=== PATIENT | male | born 1995 | race Caucasian/White ===

== ENCOUNTER 2025-02-01 00:13 | Emergency (ER) | payer OTHER, SELFPAY ==
[2025-02-01] VITALS (18 sets, daily range): BP systolic 100–127; BP diastolic 46–81; PULSE 106–158; RESP 15–22; TEMP 36.9; O2SAT 94–98
--- NOTE | 2025-02-01 00:21 | ECG_ITS ---
Test Date: 2025-02-01 00:37:59 Measurements Intervals Center Rate: 148 P: 53 MS: 123 QRS: 50 QRSD: 89 T: 47 QT: 329 QTc: 517 Interpretive Statements SINUS TACHYCARDIA, OTHERWISE NORMAL ECG No previous ECG available for comparison Electronically Signed On 02-01-2025 08:04:13 CDT by Redd Sibley M.D.
--- NOTE | 2025-02-01 00:27 | PC.NURSE ---
CINTIA LEVIN, AT THE BEDSIDE COMPLETING EKG
[2025-02-01] MEDS: ONDANSETRON INJ 4 MG/2 ML VIAL IV PUSH (00:41)
[2025-02-01] MEDS: SODIUM CHLORIDE 0.9% IV 1,000 ML 999 ML IV CONT (00:41)
--- NOTE | 2025-02-01 00:49 | PC.NURSE ---
COVID SWAB TAKEN DOWN TO LAB. PATIENT REPORTED THAT HE TOOK A THC GUMMY TONIGHT. MORE THAN HE NORMALLY WOULD. GIRLFRIEND CONFIRMED INFORMATION
--- NOTE | 2025-02-01 00:52 | PC.NURSE ---
PATIENT HAS URINAL AT THE BEDSIDE
--- NOTE | 2025-02-01 00:55 | PC.NURSE ---
PATIENT IS RESTING ON STRETCHER. GIRLFRIEND IS AT THE BEDSIDE. PATIENT REPORTS THAT HIS NAUSEA IS GETTING BETTER.
--- NOTE | 2025-02-01 01:04 | PC.NURSE ---
PATIENT URINE TAKEN TO LAB BY CINTIA LEVIN
[2025-02-01 01:15] LABS: Basophils Absolute Auto 0.07 K/mm3 (0.00-0.10); Basophils Percent Auto 0.7 % (0.0-1.0); Eosinophils Percent Auto 0.9 % (1.0-6.0); Hematocrit 45.1 % (40.0-54.0); Hemoglobin 15.6 g/dL (14.0-18.0); Immature Granulocyte Absolute 0.04 K/mm3 (0.00-0.00); Immature Granulocyte Percent A 0.4 % (0.0-0.0); Lymphocytes Percent Auto 27.4 % (18.0-42.0); Mean Corpuscular HGB Conc 34.6 g/dL (32-36); Mean Corpuscular Hemoglobin 29.3 pg (27.0-31.0); Mean Corpuscular Volume 84.6 fL (78.0-102.0); Mean Platelet Volume 9.4 fl (8.7-11.0); Monocytes Percent Auto 9.4 % (2.0-11.0); Neutrophils Absolute Auto 6.49 K/mm3 (1.70-7.20); Neutrophils Percent Auto 61.2 % (50.0-70.0); Platelet Count Result 402 K/mm3 (150-420); Red Blood Count 5.33 M/mm3 (4.70-6.10); Red Cell Distribution Width 12.4 % (11.6-14.4); White Blood Count 10.6 K/mm3 (4.8-10.8)
--- OUTSIDE RECORDS SUMMARY | 2025-02-01 01:15 | XMS_ITS | Referral Summary ---
Author Organization [facility] Address [address] [place] [address] Care Team Providers Care Project Archivist Name Role Phone Unavailable Primary Care Provider Unavailabl e Source Comments [facility] [employer],non-owned Affiliates and Associated Physician Practices is amultiple site organization consisting of ambulatory clinics and hospital sitesin [place], [place], [place] and [place]. This disclosure is being madepursuant to the Care Everywhere program and may not contain all information available regarding this patient. Last updated 18.[facility] Allergies No known active allergies Medications Be aware that medications may not be up to date on this document. Always verify current medications with the patient. No known medications Social History Tobacco Use Types Packs/Day Years Used Date Smoking Tobacco: Never Smokeless Tobacco: Never Alcohol Use Standard Drinks/Week Comments Yes 0 (1 standard drink = 0.6 oz pur e alcohol) once weekly Sex and Gender Information Value Date Recorded Sex Assigned at Not on file Gender Identity Not on file Sexual Orientation Not on file Last Filed Vital Signs Vital Sign Reading Time Taken Comments Blood Pressure 138/95 12/21/2020 4:59 PM PROMOTIONS OFFICER Pulse 105 12/21/2020 4:59 PM PROMOTIONS OFFICER Temperature 36.7 C (98.1 F) 12/21/2020 4:59 PM PROMOTIONS OFFICER Respiratory Rate 16 12/21/2020 4:59 PM PROMOTIONS OFFICER Oxygen Saturation - - Inhaled Oxygen Concentration - - Weight 88.4 kg (194 lb 12.8 oz) 12/21/2020 4:59 PM PROMOTIONS OFFICER Height 167.6 cm (5' 6 ) 12/21/2020 4:5 9 PM PROMOTIONS OFFICER Body Mass Index 31.44 12/21/2020 4:59 PM PROMOTIONS OFFICER Plan of Treatment Not on file
--- OUTSIDE RECORDS SUMMARY | 2025-02-01 01:15 | XMS_ITS | Clinical Summary ---
Author Organization [facility] Address [address] [place] [address] Care Team Providers Care Spirits Model Name Role Phone Unavailable Primary Care Provider Unavailabl e Source Comments [facility] [employer] [facility],non-owned Affiliates and Associated Physician Practices is amultiple site organization consisting of ambulatory clinics and hospital sitesin [place], [place], [place] and [place]. This disclosure is being madepursuant to the Care Everywhere program and may not contain all information available regarding this patient. Last updated 18.[facility] Allergies No known active allergies Medications Be [...] Comments Blood Pressure 138/95 12/21/2020 4:59 PM [employer] Pulse 105 12/21/2020 4:59 PM [employer] Temperature 36.7 C (98.1 F) 12/21/2020 4:59 PM [employer] Respiratory Rate 16 12/21/2020 4:59 PM [employer] Oxygen Saturation - - Inhaled Oxygen Concentration - - Weight 88.4 kg (194 lb 12.8 oz) 12/21/2020 4:59 PM [employer] Height 167.6 cm (5' 6 ) 12/21/2020 4:59 PM [employer] Body Mass Index 31.44 12/21/2020 4:59 PM [employer] Plan of Treatment Health Maintenance Due Date Last Done Comments HIV SCREENING 2008 HEPATITIS C SCREENING 08/20/2011 DTAP/TDAP/TD VACCINES (1 - Tdap) 2012 HEPATITIS B VACCINE (1 of 3 - 19+ 3-dose series) 2012 COVID-19 VACCINE (1 - 2023-2 5 season) 2024 INFLUENZA VACCINE (#1) 2024 DEPRESSION SCREENING 11/26/2024 ZOSTER VACCINE (1 of 2) 2043 HIB VACCINE Aged Out No longer eligi ble based on patient's age to complete this topic HPV VACCINE Aged Out No longer eligi ble based on patient's age to complete this topic MENINGOCOCCAL (Group B) VACCINE Aged Out No longer eligible based on patient's age to complete this topic MENINGOCOCCAL VACCINE Aged Out No tegan raoul eligible based on patient's age to complete this topic PNEUMOCOCCAL VACCINE Aged Out No long er eligible based on patient's age to complete this topic
--- OUTSIDE RECORDS SUMMARY | 2025-02-01 01:15 | XMS_ITS | Patient Health Summary ---
Author Organization [facility] Address [address] [place] [address] Care Team Providers Care Tombstone Polisher Name Role Phone Unavailable Primary Care Provider Unavailabl e Note from [facility],non-owned Affiliates and Associated Physician Practices is amultiple site organization consisting of ambulatory clinics and hospital sitesin [place], [place], [place] and [place]. This disclosure is being madepursuant to the Care Everywhere program and may not contain all information available regarding this patient. Last updated 18.[facility] [employer] Allergies No known active allergies Medications Be [...] Comments Blood Pressure 138/95 12/21/2020 4:59 PM SENIOR NUCLEAR MEDICINE TECHNOLOGIST Pulse 105 12/21/2020 4:59 PM SENIOR NUCLEAR MEDICINE TECHNOLOGIST Temperature 36.7 C (98.1 F) 12/21/2020 4:59 PM SENIOR NUCLEAR MEDICINE TECHNOLOGIST Respiratory Rate 16 12/21/2020 4:59 PM SENIOR NUCLEAR MEDICINE TECHNOLOGIST Oxygen Saturation - - Inhaled Oxygen Concentration - - Weight 88.4 kg (194 lb 12.8 oz) 12/21/2020 4:59 PM SENIOR NUCLEAR MEDICINE TECHNOLOGIST Height 167.6 cm (5' 6 ) 12/21/2020 4:59 PM SENIOR NUCLEAR MEDICINE TECHNOLOGIST Body Mass Index 31.44 12/21/2020 4:59 PM SENIOR NUCLEAR MEDICINE TECHNOLOGIST
[2025-02-01 01:16] LABS: Lactic Acid Reflex 2.7 mmol/L (0.4-2.0)
[2025-02-01 01:19] LABS: Alanine Aminotransferase 34 U/L (16-63); Albumin Level 4.2 g/dL (3.4-5.0); Alkaline Phosphatase 69 U/L (46-116); Anion Gap 12 mmol/L (4-12); Aspartate Amino Transferase 20 U/L (15-37); Bilirubin,Total 1.2 mg/dL (0.00-1.00); Blood Urea Nitrogen 16 mg/dL (7-18); Calcium 8.9 mg/dL (8.5-10.1); Carbon Dioxide 27 mmol/L (21-32); Chloride 103 mmol/L (98-108); Estimated CRCL calculation 74 ml/min; Estimated Glomerular Filt Rate 56; Glucose 200 mg/dL (70-99); Osmolality Calculated 301 mOsm/kg (285-295); Potassium 3.6 mmol/L (3.5-5.1); Sodium 142 mmol/L (136-145); Thyroid Stimulating Hormone 1.96 uIU/mL (0.36-3.74); Total Protein 7.5 g/dL (6.4-8.2)
[2025-02-01 01:24] LABS: Add Urine Microscopic? NO; Appearance Urine Clear (Clear); Bilirubin Urine Negative (Negative); Blood Urine Negative (Negative); Color Urine Yellow (Yellow); Glucose Urine UA Negative (Negative); Ketones Urine Trace (Negative); Leukocyte Esterase Ur Negative LEU/UL (Negative); Nitrate Urine Negative (Negative); Protein Urine Negative (Negative); Specific Grav Ur 1.025 (1.010-1.020)
[2025-02-01 01:26] LABS: Amphetamine Screen Urine Negative (Negative); Barbiturate Screen Urine Negative (Negative); Benzodiazepines Screen Urine Negative (Negative); Cannabinoid Screen Urine Positive (Negative); Cocaine Screen Urine Negative (Negative); Methadone Screen Urine Negative (Negative); Opiate Screen Urine Negative (Negative); Phencyclidine Screen Urine Negative (Negative)
[2025-02-01 01:28] LABS: D Dimer 0.19 mg/L (0.19-0.50); Troponin I < 4.0 ng/L (0.00-60.4)
[2025-02-01 01:58] LABS: Influenza A QL RT-PCR Negative (Negative); Influenza B QL RT-PCR Negative (Negative); RSV RNA, RT-PCR Negative (Negative); SARS-CoV-2 RNA PCR Negative (Negative)
--- NOTE | 2025-02-01 03:00 | PC.NURSE ---
DST: PATIENT IS RESTING ON STRETCHER WITH EYES CLOSED. RESP EVEN AND UNLABORED. GIRLFRIEND AT THE BEDSIDE. CALL LIGHT IN REACH
[2025-02-01 03:42] LABS: Reflex Lactic Acid Yes or No Add Lactic
--- NOTE | 2025-02-01 04:00 | PC.NURSE ---
PATIENT IS RESTING ON STRETCHER. APPEARS TO BE SLEEPING. RESP EVEN AND UNLABORED. GIRLFRIEND AT THE BEDSIDE. CALL LIGHT IN REACH
--- NOTE | 2025-02-01 04:20 | ED_ITS ---
HPI - Nausea/Vomiting/Diarrhea General Chief complaint: Nausea/Vomiting/Diarrhea Stated complaint: NAUSEA, VOMITING Time Seen by Provider: 02/01/25 00:27 Source: patient and family Mode of arrival: ambulatory Limitations: no limitations History of Present Illness HPI Narrative: This is a 29-year-old male that has a history of anxiety presents with some tachycardia with nausea vomiting after he had an extra dose of edible gummy CBD, no chest pain no shortness of breath no fever chills no abdominal pain no diarrhea or constipation. MD elicited complaint: nausea and vomiting Onset (ago): hour(s) Related Data Home Medications ?Medication ?Instructions ?Recorded ?Confirmed ?Last Taken ?Type trazodone 50 mg tablet 50 mg PO HS PRN insomnia 02/01/25 02/01/25 Unknown History venlafaxine 75 mg capsule,extended 225 mg PO 02/01/25 Unknown History release 24 hr Allergies Allergy/AdvReac Type Severity Reaction Status Date / Time TOBACCO Allergy Mild Dyspnea / Uncoded 02/01/25 01:22 SOB Review of Systems 2 Review of Systems: All systems reviewed & are unremarkable except as noted in HPI and below PMFSH Past Medical History Medical History Anxiety Exam 2 Const: General: healthy appearing and no acute distress Nutritional Appearance: well nourished Orientation/consciousness: patient oriented x3 Limitations: no limitations HENMT: Head: normal to inspection Eyes: Conjunctivae: conjunctivae normal Neck: Neck: normal visual inspection, no lymphadenopathy and no meningeal signs Chest: Chest palpation & inspection: normal inspection of the chest Resp: Effort & Inspection: normal respiratory effort Auscultation: clear to auscultation bilaterally Cardio: Rate: regular rate Rhythm: regular rhythm GI: GI Palp: Yes Soft to palpation Auscultation: normal bowel sounds : General: Yes bladder normal to palpation Skin: General skin exam: normal color Rashes: no rashes Wounds: no wounds Neuro: General: patient oriented x3 and no meningeal signs Psych: Affect: Anxious affect present Course Course Emergency Course: EKG performed shows normal sinus rhythm heart rate had an improved to 1 6 with a blood pressure 112/55 received IV fluids, blood work performed reviewed with patient with out any acute abnormalities. Patient also received IV Zofran and nausea vomiting had improved significantly. Vital Signs Vital signs: Vital Signs Temperature 36.9 C 03/09/25 00:13 Pulse Rate 151 H 02/01/25 00:13 Respiratory Rate 20 02/01/25 00:13 Blood Pressure 127/81 02/01/25 00:13 Pulse Oximetry 97 02/01/25 00:13 Oxygen Delivery Room Air 02/01/25 00:13 Temperature 36.9 C 02/01/25 00:13 Pulse Rate 106 H 02/01/25 04:14 Respiratory Rate 17 02/01/25 04:01 Blood Pressure 112/55 L 02/01/25 04:00 Pulse Oximetry 95 02/01/25 04:01 Oxygen Delivery Room Air 02/01/25 01:45 MDM - Nausea/Vomiting/Diarrhea Lab Data 02/01/25 00:33 02/01/25 00:33 Labs: Lab Results 02/01/25 Range/Units 00:33 WBC 10.6 (4.8-10.8) K/mm3 RBC 5.33 (4.70-6.10) M/mm3 Hgb 15.6 (14.0-18.0) g/dL Hct 45.1 (40.0-54.0) % MCV 84.6 (78.0-102.0) fL MCH 29.3 (27.0-31.0) pg MCHC 34.6 (32-36) g/dL RDW 12.4 (11.6-14.4) % Plt Count 402 (150-420) K/mm3 MPV 9.4 (8.7-11.0) fl Immature Gran % (Auto) 0.4 H (0.0-0.0) % Neut % (Auto) 61.2 (50.0-70.0) % Lymph % (Auto) 27.4 (18.0-42.0) % [place] % (Auto) 9.4 (2.0-11.0) % Eos % (Auto) 0.9 L (1.0-6.0) % Baso % (Auto) 0.7 (0.0-1.0) % Lymph # (Auto) 2.90 (1.10-4.50) K/mm3 [place] # (Auto) 1.00 H (0.10-0.90) K/mm3 Eos # (Auto) 0.10 (0.02-0.50) K/mm3 Baso # (Auto) 0.07 (0.00-0.10) K/mm3 Abs Immat Gran (auto) 0.04 H (0.00-0.00) K/mm3 Absolute Neuts (auto) 6.49 (1.70-7.20) K/mm3 Absolute Nucleated RBC 0.00 (0.00-0.00) K/mm3 Nucleated RBC % 0.0 (0-0.0) % D-Dimer 0.19 (0.19-0.50) mg/L Sodium 142 (136-145) mmol/L Potassium 3.6 (3.5-5.1) mmol/L Chloride 103 (98-108) mmol/L Carbon Dioxide 27 (21-32) mmol/L Anion Gap 12 (4-12) mmol/L BUN 16 (7-18) mg/dL Creatinine 1.47 H (0.70-1.30) mg/dL Estim Creat Clear Calc 74 ml/min Estimated GFR 56 L (59 - ) Glucose 200 H (70-99) mg/dL Calculated Osmolality 301 H (285-295) mOsm/kg Lactic Acid 2.7 H (0.4-2.0) mmol/L Calcium 8.9 (8.5-10.1) mg/dL Total Bilirubin 1.2 H (0.00-1.00) mg/dL AST 20 (15-37) U/L ALT 34 (16-63) U/L Alkaline Phosphatase 69 (46-116) U/L Troponin I < 4.0 (0.00-60.4) ng/L Total Protein 7.5 (6.4-8.2) g/dL Albumin 4.2 (3.4-5.0) g/dL TSH 1.96 (0.36-3.74) uIU/mL Urine Color Yellow (Yellow) Urine Appearance Clear (Clear) Urine pH 6.0 (5.0-8.0) Ur Specific [place] 1.025 H (1.010-1.020) Urine Protein Negative (Negative) Urine Glucose (UA) Negative (Negative) Urine Ketones Trace H (Negative) Ur Blood (Man) Negative (Negative) Urine Nitrate Negative (Negative) Urine Bilirubin Negative (Negative) Urine Urobilinogen 1.0 (0.2-1.0) mg/dL Leukocyte Esterase Rfl Negative (Negative) ROSE/UL Urine Opiates Screen Negative (Negative) Urine Methadone Screen Negative (Negative) Ur Barbiturates Screen Negative (Negative) Ur Phencyclidine Scrn Negative (Negative) Ur Amphetamine Screen Negative (Negative) U Benzodiazepines Scrn Negative (Negative) Urine Cocaine Screen Negative (Negative) U Cannabinoids Screen Positive A (Negative) Influenza A (RT-PCR) Negative (Negative) Influenza B (RT-PCR) Negative (Negative) RSV (RT-PCR) Negative (Negative) SARS-CoV-2 RNA (RT-PCR) Negative (Negative) Critical Care Time Critical Care Time Critical Care Time: No Discharge Plan Discharge Clinical Impression: Nausea & vomiting Qualifiers: Vomiting type: unspecified Qualified Code(s): R11.2 - Nausea with vomiting, unspecified Patient Disposition: Home, Self-Care Condition: Stable Instructions: Antibiotic Form, Acute Nausea and Vomiting (ED) Additional Instructions: advised to take medication as prescribed and to follow with primary care physician within 1 week for further evaluation treatment. Patient Language: [place] Prescriptions: New ondansetron 4 mg tablet,disintegrating 4 mg PO Q6H PRN (Reason: nausea and vomiting) Qty: 10 0RF No Action venlafaxine 75 mg capsule,extended release 24hr 225 mg PO trazodone 50 mg tablet 50 mg PO HS PRN (Reason: insomnia) Follow-up/Referrals: UNKNOWN,DOCTOR [Primary Care Provider] - Time of Disposition: 04:25
--- NOTE | 2025-02-01 04:33 | PC.NURSE ---
PLANNING FOR DISCHARGE. HAD PATIENT SIT ON SIDE OF THE BED. PATIENT DENIES ANY DIZZINESS OR NAUSEA. HAD PATIENT STAND UP. AGAIN, PATIENT DENIED ANY DIZZINESS OR NAUSEA. PATIENT WAS ABLE TO TAKE A SIP OF WATER. REPORTS THAT HE IS FEELING BETTER. STATES I DONT FEEL LIKE MY HEART IS RACING ANYMORE .
== END 2025-02-01 04:34 | disposition home or self-care (01) ==
PROVIDERS: Emergency Provider Emergency Medicine
DX: R11.2 Nausea with vomiting, unspecified (principal); Z79.899 Other long term (current) drug therapy; Z20.822 Contact with and (suspected) exposure to COVID-19
CPT/HCPCS: 36415; 80053; 80307; 81003; 83605; 84443; 84484; 85025; 85380; 87637; 93005; 96361; 96374; 99284; J2405; J7030